=== PATIENT | male | born 1985 | race Caucasian/White ===

== ENCOUNTER 2017-04-12 20:56 | Emergency (ER) | payer SELFPAY ==
[~2017-04-12] VITALS: Ht 188 cm; Wt 90.6 kg
[~2017-04-12 20:56] MED LIST: PERCOCET 10-321 EACH PO; SOMA350 MG PO; TESSALON PERLE100 MG PO; TYLENOL325 M1 PO
[2017-04-12] MEDS ORDERED: NORCO 7.5/321 TABLET PO (23:46)
[2017-04-12] MEDS ORDERED: MOTRIN800 MG PO (23:46)
[2017-04-13 00:05] VITALS: BP 121/78
== END 2017-04-13 00:35 | disposition home or self-care (01) ==
LOC: EME 20:56
DX: S83.421A Sprain of lateral collateral ligament of right knee, initial encounter (principal); W17.2XXA Fall into hole, initial encounter; Y99.0 Civilian activity done for income or pay
CPT/HCPCS: 73564; 99281; 99284